=== PATIENT | male | born 1950 | race Caucasian/White ===

== ENCOUNTER 2024-04-14 10:14 | Inpatient (IN) ==
[2024-04-14 11:04] LABS: Basophils # (Auto) 0.02 K/mcL (0.00-0.30); Basophils % (Auto) 0.2 % (0.0-2.0); Eosinophils # (Auto) 0.03 K/mcL (0.00-0.70); Eosinophils % (Auto) 0.3 % (0.0-7.0); Hematocrit 39.8 % (40.1-51.0); Hemoglobin 12.6 g/dL (13.7-17.5); Lymphocytes # (Auto) 0.63 K/mcL (1.50-4.80); Lymphocytes % (Auto) 5.4 % (15.5-49.0); Mean Cell Volume 90.2 fL (80.0-100.0); Mean Corpuscular HGB Conc 31.7 g/dL (31.0-36.0); Mean Platelet Volume 10.4 fL (8.8-12.5); Monocytes # (Auto) 1.18 K/mcL (0.10-0.90); Neutrophils % (Auto) 83.8 % (38.0-78.0); Platelet Count 190 K/mcL (140-440); RBC 4.41 M/mcL (4.63-6.08); WBC 11.8 K/mcL (4.5-11.0)
[2024-04-14 11:19] LABS: POC Calcium, Ionized 1.04 (1.16-1.32); POC Creatinine 1.5 (0.6-1.2); POC Potassium 3.7 (3.3-5.1)
[2024-04-14 11:28] LABS: ALT/SGPT 26 U/L (<40); AST/SGOT 54 U/L (<40); Albumin 3.8 gm/dL (3.2-5.2); Albumin/Globulin Ratio 1.5 (1.0-2.3); Alkaline Phosphatase 72 U/L (39-117); Bilirubin,Total 0.9 mg/dL (0.1-1.0); Blood Urea Nitrogen 33 mg/dL (8-23); Calcium 9.2 mg/dL (8.6-10.4); Carbon Dioxide 26 mmol/L (22-30); Chloride 100 mmol/L (96-108); Globulin 2.6 gm/dL (2.2-3.7); Glomerular Filtration Rate 49; Glucose 107 mg/dL (70-105); Potassium 3.8 mmol/L (3.3-5.1); Sodium 138 mmol/L (133-145)
[2024-04-14] MEDS: SODIUM CHLORIDE 0.9% IV SCH (12:35)
[2024-04-14] MEDS: GENTAMICIN SULFATE IV SCH (12:35)
[2024-04-14] MEDS ORDERED: ROCURONIUM 10 MG/ML ML IV ONE (12:46)
[2024-04-14] MEDS ORDERED: LIDOCAINE 2% PF 5 ML VIAL ONE (12:46)
[2024-04-14] MEDS ORDERED: ONDANSETRON 4 MG/2 ML VIAL ONE (12:46)
[2024-04-14] MEDS ORDERED: KETAMINE 50 MG/ML Syringe IV ONE (12:46)
[2024-04-14] MEDS ORDERED: fentaNYL 100 MCG/2 ML VIAL ONE (12:46)
[2024-04-14] MEDS ORDERED: DEXAMETHASONE 10 MG/ML VIAL ONE (12:46)
[2024-04-14] MEDS ORDERED: PROPOFOL 200 MG/20 ML VIAL IV ONE ×2 (12:47→14:29)
[2024-04-14] MEDS: ceFAZolin 2 GM in DEXTROSE 5% IN WATER 50 ML IV SCH (13:17)
[2024-04-14] MEDS: IOVERSOL 20 ML VIAL IJ ONE (13:18)
[2024-04-14] MEDS ORDERED: MAGNESIUM SULFATE 2 GM/50 ML BAG IV ONE (13:20)
[2024-04-14] MEDS ORDERED: SUGAMMADEX SODIUM 200 MG/2 ML VIAL IV ONE ×2 (13:20→13:42)
[2024-04-14] MEDS: LIDOCAINE 2% URO-JET 10 ML JEL.PF.APP UR ONE (13:20)
[2024-04-14] MEDS ORDERED: ePHEDrine 50 MG/5 ML SYRINGE (ANEST) IV ONE (13:21)
[2024-04-14] MEDS ORDERED: ONDANSETRON 4 MG/2 ML VIAL IV PRN (13:25)
[2024-04-14] MEDS ORDERED: HYDROcodone/APAP 5/325MG TABLET PO PRN (13:25)
[2024-04-14] MEDS ORDERED: HYDROmorphone 1 MG/ML SYRINGE IV PRN (13:25)
[2024-04-14] MEDS ORDERED: PHENYLephrine 1 MG/10 ML SYRINGE (ANEST) ONE (13:42)
[2024-04-14] MEDS ORDERED: FAMOTIDINE/PF 20 MG/2 ML VIAL IV ONE (14:15)
[2024-04-14] MEDS ORDERED: methylPREDNISolone SOD SUCC 125 MG/2 ML VIAL ONE (14:18)
[2024-04-14] MEDS ORDERED: MIDAZOLAM 2 MG/2 ML VIAL ONE ×2 (14:34)
[2024-04-14] MEDS ORDERED: NOREPINEPHRINE BITARTRATE 8 MG in 0.9 % SODIUM CHLORIDE 242 ML IV PRN (15:00)
[2024-04-14] MEDS ORDERED: SUCCINYLCHOLINE 200 MG/10 ML VIAL IV ONE (15:08)
[2024-04-14] MEDS ORDERED: ALBUTEROL SULFATE 60 PUFF INHALER ONE (15:10)
[2024-04-14] MEDS ORDERED: DOXAPRAM HCL 20 MG/ML IV ONE (15:14)
[2024-04-14] MEDS: PROPOFOL 1,000 MG in PREMIX 1 BAG IV SCH (15:32)
[2024-04-14] MEDS: fentaNYL 2,500 MCG in 0.9 % SODIUM CHLORIDE 200 ML IV SCH (15:43)
[2024-04-14] MEDS: 0.9 % SODIUM CHLORIDE 10 ML SYRINGE IV SCH ×2 (15:44→20:59)
[2024-04-14] MEDS: 0.9 % SODIUM CHLORIDE 250 ML IV SCH (15:44)
[2024-04-14] MEDS: LACTATED RINGERS 1,000 ML IV SCH (15:46)
[2024-04-14] MEDS: IPRATROPIUM/ALBUTEROL 3 ML AMPUL.NEB NEB SCH (16:08)
[2024-04-14] MEDS: AMPICILLIN SODIUM 1 GM in 0.9 % SODIUM CHLORIDE 50 ML IV SCH (16:09)
[2024-04-14] MEDS: PROPOFOL 100 ML IV ONE (16:10)
[2024-04-14] MEDS: PANTOPRAZOLE 40 MG VIAL IV SCH (18:38)
[2024-04-14] MEDS: HEPARIN 5,000 UNIT/ML VIAL SQ SCH (20:58)
[2024-04-14] MEDS ORDERED: 0.9 % SODIUM CHLORIDE 10 ML SYRINGE IV SCH (22:00)
[2024-04-15] MEDS: PROPOFOL 100 ML IV ONE (02:54)
[2024-04-15 06:20] LABS: Basophils # (Auto) 0.01 K/mcL (0.00-0.30); Basophils % (Auto) 0.1 % (0.0-2.0); Eosinophils # (Auto) 0 K/mcL (0.00-0.70); Eosinophils % (Auto) 0 % (0.0-7.0); Hematocrit 36.5 % (40.1-51.0); Hemoglobin 11.7 g/dL (13.7-17.5); Lymphocytes # (Auto) 0.44 K/mcL (1.50-4.80); Lymphocytes % (Auto) 3.2 % (15.5-49.0); Mean Cell Volume 90.6 fL (80.0-100.0); Mean Corpuscular HGB Conc 32.1 g/dL (31.0-36.0); Monocytes # (Auto) 0.23 K/mcL (0.10-0.90); Monocytes % (Auto) 1.7 % (1.0-12.0); Neutrophils % (Auto) 94.6 % (38.0-78.0); Platelet Count 193 K/mcL (140-440); RBC 4.03 M/mcL (4.63-6.08); WBC 13.9 K/mcL (4.5-11.0)
[2024-04-15 06:50] LABS: ALT/SGPT 18 U/L (<40); AST/SGOT 29 U/L (<40); Albumin 3.2 gm/dL (3.2-5.2); Albumin/Globulin Ratio 1.4 (1.0-2.3); Alkaline Phosphatase 67 U/L (39-117); Bilirubin,Direct 0.4 mg/dL (<0.3); Bilirubin,Total 0.5 mg/dL (0.1-1.0); Blood Urea Nitrogen 33 mg/dL (8-23); Calcium 8.6 mg/dL (8.6-10.4); Carbon Dioxide 22 mmol/L (22-30); Chloride 103 mmol/L (96-108); Globulin 2.3 gm/dL (2.2-3.7); Glomerular Filtration Rate 53; Glucose 154 mg/dL (70-105); Lactate Dehydrogenase 201 U/L (135-225); Phosphorous 3.8 mg/dL (2.5-4.5); Potassium 4.3 mmol/L (3.3-5.1); Sodium 139 mmol/L (133-145); Triglycerides 89 mg/dL (<150); Uric Acid 5.8 mg/dL (2.5-8.0)
[2024-04-15] MEDS ORDERED: PANTOPRAZOLE 40 MG TABLET PO SCH (07:30)
[2024-04-15] MEDS: methylPREDNISolone SOD SUCC 40 MG/ML VIAL IV SCH (09:24)
[2024-04-15] MEDS: BUDESONIDE 0.5 MG/2 ML AMPUL.NEB NEB SCH (09:25)
[2024-04-15] MEDS: IPRATROPIUM/ALBUTEROL 3 ML AMPUL.NEB NEB SCH (19:15)
[2024-04-16 06:18] LABS: Basophils # (Auto) 0.02 K/mcL (0.00-0.30); Basophils % (Auto) 0.1 % (0.0-2.0); Eosinophils # (Auto) 0 K/mcL (0.00-0.70); Eosinophils % (Auto) 0 % (0.0-7.0); Hematocrit 32.7 % (40.1-51.0); Hemoglobin 10.4 g/dL (13.7-17.5); Lymphocytes # (Auto) 0.79 K/mcL (1.50-4.80); Lymphocytes % (Auto) 4.5 % (15.5-49.0); Mean Cell Volume 90.3 fL (80.0-100.0); Mean Corpuscular HGB Conc 31.8 g/dL (31.0-36.0); Mean Platelet Volume 10.5 fL (8.8-12.5); Monocytes # (Auto) 0.73 K/mcL (0.10-0.90); Monocytes % (Auto) 4.1 % (1.0-12.0); Neutrophils % (Auto) 89.8 % (38.0-78.0); Platelet Count 233 K/mcL (140-440); RBC 3.62 M/mcL (4.63-6.08); Red Cell Distribution Width 14.2 % (11.5-14.5); WBC 17.7 K/mcL (4.5-11.0)
[2024-04-16 06:24] LABS: ALT/SGPT 17 U/L (<40); AST/SGOT 29 U/L (<40); Albumin 3.1 gm/dL (3.2-5.2); Albumin/Globulin Ratio 1.5 (1.0-2.3); Alkaline Phosphatase 63 U/L (39-117); Bilirubin,Direct 0.3 mg/dL (<0.3); Bilirubin,Total 0.4 mg/dL (0.1-1.0); Blood Urea Nitrogen 34 mg/dL (8-23); Calcium 8.6 mg/dL (8.6-10.4); Carbon Dioxide 23 mmol/L (22-30); Chloride 104 mmol/L (96-108); Globulin 2.1 gm/dL (2.2-3.7); Glomerular Filtration Rate 53; Glucose 129 mg/dL (70-105); Lactate Dehydrogenase 201 U/L (135-225); Phosphorous 3.3 mg/dL (2.5-4.5); Potassium 3.9 mmol/L (3.3-5.1); Sodium 138 mmol/L (133-145); Triglycerides 83 mg/dL (<150); Uric Acid 5.3 mg/dL (2.5-8.0)
[2024-04-16] MEDS ORDERED: ALBUTEROL SULFATE 60 PUFF INHALER INH PRN (07:48)
[2024-04-16] MEDS: predniSONE 20 MG TABLET PO SCH (08:23)
[2024-04-17] MEDS ORDERED: ASPIRIN 81 MG TAB.CHEW PO SCH (09:00)
== END 2024-04-16 10:35 | disposition home or self-care (01) | DRG 204 ==
LOC: SUR 10:14 → ICU 15:22
PROVIDERS: ADMIT Student in an Organized Health Care Education/Training Program; ATTEND Urology